=== PATIENT | male | born 1970 | race Caucasian/White ===

== ENCOUNTER 2021-06-06 15:12 | Emergency (ER) | payer OTHER ==
[~2021-06-06] VITALS: Ht 182.8 cm; Wt 98.6 kg
--- NOTE | 2021-06-06 15:25 | ED Dyspnea ---
General Stated Complaint: SOB History of Present Illness Date Seen by Provider: Jun 06, 2021 Time Seen by Provider: 15:18 Initial Comments 50-year-old male presents with mild chest discomfort, mild shortness of breath. Patient is positive for coronavirus. Patient was symptoms started on 05/25/2021 and was positive on 05/26. Patient presents today because he has just a little bit of mild chest discomfort/tightness and some mild feeling of shortness of breath. Patient's home oxygen has been run in the mid s. No reports of fever. He does still have a mild cough. Allergies and Home Medications Allergies Coded Allergies: Penicillins (Unverified Adverse Reaction, Unknown, 06/06/21) Patient Home Medication List Home Medication List Reviewed: Yes Budesonide (Budesonide) 1 Mg/2 Ml Ampul.edgard, (Reported) Entered as Reported by: TAMICA MOYA on 06/06/211529 Last Action: New Order Cefdinir (Cefdinir) 300 Mg Capsule, (Reported) Entered as Reported by: TAMICA MOYA on 06/06/211529 Last Action: New Order Dexamethasone (Dexamethasone) 6 Mg Tablet, (Reported) Entered as Reported by: TAMICA MOYA on 06/06/211529 Last Action: New Order Fenofibrate Nanocrystallized (Fenofibrate) 145 Mg Tablet, (Reported) Entered as Reported by: TAMICA MOYA on 06/06/211529 Last Action: New Order Ipratropium/Albuterol Sulfate (Iprat-Albut 0.5-3(2.5) mg/3 ml) 3 Ml Ampul.neb, (Reported) Entered as Reported by: TAMICA MOYA on 06/06/211529 Last Action: New Order Ivermectin (Ivermectin) 3 Mg Tablet, (Reported) Entered as Reported by: TAMICA MOYA on 06/06/211529 Last Action: New Order Review of Systems Review of Systems Constitutional: No chills, No fever Respiratory: cough, short of breath Cardiovascular: chest pain Gastrointestinal: no symptoms reported Genitourinary: no symptoms reported Musculoskeletal: no symptoms reported Skin: no symptoms reported Psychiatric/Neurological: No Symptoms Reported Endocrine: No Symptoms Reported Hematologic/Lymphatic: No Symptoms Reported Physical Exam Vital Signs Vital Signs - First Documented 06/06/21 15:23 Temp 36.3 Pulse 89 Resp 20 B/P (MAP) 156/92 (113) Pulse Ox 96 O2 Delivery Room Air Capillary Refill : Height, Weight, BMI Height: '" Weight: lbs. oz. kg; BMI Method: General Appearance: No Apparent Distress, WD/WN Respiratory: Lungs Clear, Normal Breath Sounds Cardiovascular: Regular Rate, Rhythm, No Edema Gastrointestinal: Non Tender, Soft Extremity: Normal Capillary Refill, Normal Inspection, Normal Range of Motion Neurologic/Psychiatric: Alert, Oriented x3, Normal Mood/Affect, blood bank laboratory technologist II-XII Norm as Tested Skin: Normal Color, Warm/Dry Progress/Results/Core Measures Results/Orders Lab Results Laboratory Tests Test 06/06/21 15:25 Range/Units White Blood Count 13.6 H 4.3-11.0 10^3/uL Red Blood Count 5.00 4.30-5.52 10^6/uL Hemoglobin 14.9 13.3-17.7 g/dL Hematocrit 45 40-54 % Mean Corpuscular Volume 90 80-99 fL Mean Corpuscular Hemoglobin 30 25-34 pg Mean Corpuscular Hemoglobin Concent 33 32-36 g/dL Red Cell Distribution Width 13.6 10.0-14.5 % Platelet Count 317 130-400 10^3/uL Mean Platelet Volume 9.5 9.0-12.2 fL Immature Granulocyte % (Auto) 1 % Neutrophils (%) (Auto) 95 H 42-75 % Lymphocytes (%) (Auto) 3 L 12-44 % Monocytes (%) (Auto) 2 0-12 % Eosinophils (%) (Auto) 0 0-10 % Basophils (%) (Auto) 0 0-10 % Neutrophils # (Auto) 12.9 H 1.8-7.8 X 10^3 Lymphocytes # (Auto) 0.4 L 1.0-4.0 X 10^3 Monocytes # (Auto) 0.2 0.0-1.0 X 10^3 Eosinophils # (Auto) 0.0 0.0-0.3 10^3/uL Basophils # (Auto) 0.0 0.0-0.1 10^3/uL Immature Granulocyte # (Auto) 0.1 0.0-0.1 10^3/uL Neutrophils % (Manual) 87 % Lymphocytes % (Manual) 2 % Monocytes % (Manual) 2 % Band Neutrophils 6 % Atypical Lymphocytes 3 % Blood Morphology Comment NORMAL D-Dimer 0.70 H 0.00-0.49 UG/ML Sodium Level 133 L 135-145 MMOL/L Potassium Level 4.4 3.6-5.0 MMOL/L Chloride Level 95 L 98-107 MMOL/L Carbon Dioxide Level 28 21-32 MMOL/L Anion Gap 10 5-14 MMOL/L Blood Urea Nitrogen 13 7-18 MG/DL Creatinine 0.95 0.60-1.30 MG/DL Estimat Glomerular Filtration Rate 84 BUN/Creatinine Ratio 14 Glucose Level 129 H 70-105 MG/DL Calcium Level 9.2 8.5-10.1 MG/DL Corrected Calcium 9.3 8.5-10.1 MG/DL Total Bilirubin 0.5 0.1-1.0 MG/DL Aspartate Amino Transf (AST/SGOT) 33 5-34 U/L Alanine Aminotransferase (ALT/SGPT) 32 0-55 U/L Alkaline Phosphatase 50 40-136 U/L Troponin I < 0.30 <0.30 NG/ML Total Protein 7.7 6.4-8.2 GM/DL Albumin 3.9 3.2-4.5 GM/DL My Orders Orders - PEGUERO,RAYO L DO Cbc With Automated Diff (06/06/21 15:25) Comprehensive Metabolic Panel (06/06/21 15:25) Fibrin Degradation Products (06/06/21 15:25) Troponin I Fs (06/06/21 15:25) Ed Iv/Invasive Line Start (06/06/21 15:25) Ekg Tracing (06/06/21 15:25) Monitor-Rhythm Ecg Trace Only (06/06/21 15:25) Chest 1 View Ap/Pa Only (06/06/21 15:25) Manual Differential (06/06/21 15:25) Ct Angio Chest W (06/06/21 16:21) Vital Signs/I&O 06/06/21 15:23 Temp 36.3 Pulse 89 Resp 20 B/P (MAP) 156/92 (113) Pulse Ox 96 O2 Delivery Room Air Progress Progress Note : Progress Note Patient with slight elevation of D-dimer. Discussed with him CTA but this time he declined. Patient does have some mild infiltrates likely a result of his Covid pneumonia. Patient was just recently started on azithromycin. Patient oxygen is in the mid upper 90s with a heart rate in the mid 70s. Patient stable and will be discharged home Initial ECG Impression Date: Jun 06, 2021 Initial ECG Impression Time: 15:24 Initial ECG Rhythm: Normal Sinus Initial ECG Intervals: Normal Initial ECG Impression: Normal Diagnostic Imaging Diagonstic Imaging: Xray Plain Films/CT/US/NM/MRI: chest Comments Date of Exam:06/06/21 CHEST 1 VIEW AP/PA ONLY CLINICAL INDICATION: Patient with chest pain. Patient diagnosed with COVID on 05/26/2021. EXAM: Portable chest x-ray upright view. COMPARISONS: None. FINDINGS: Lungs/pleura: There are mild patchy airspace opacities involving the periphery of the left midlung field and left lung base region, concerning for lung infiltrates. The remainder of the lungs are clear. There is no pneumothorax. There is no pleural effusion. Mediastinum: Unremarkable. Pulmonary vasculature: Unremarkable. Heart: Unremarkable. Bones/extrathoracic soft tissue: Unremarkable. IMPRESSION: There are mild patchy airspace opacities involving the periphery of the left midlung field and left lung base, concerning for lung infiltrates/pneumonia. Departure Impression Primary Impression: Pneumonia due to COVID-19 virus Disposition: 01 HOME, SELF-CARE Condition: Stable Departure-Patient Inst. Referrals: JOSIAH MOCK DO (PCP/Family) Primary Care Physician Patient Instructions: Recovery After COVID-19 Add. Discharge Instructions: Continue your current treatment from Dr. MOCK's office. Return to the ER with any worsening chest pain or decreasing O2 saturation RAYO PEGUERO DO Jun 06, 2021 15:25
[2021-06-06] MEDS ORDERED: FENO145T26 (15:30)
[2021-06-06] MEDS ORDERED: CEFD300C3 (15:30)
[2021-06-06] MEDS ORDERED: IPRA3AMP31 (15:30)
[2021-06-06] MEDS ORDERED: BUDE1AMP2 (15:30)
[2021-06-06] MEDS ORDERED: IVER3TAB2 (15:30)
[2021-06-06] MEDS ORDERED: DEXA6TAB (15:30)
--- NOTE | 2021-06-06 15:51 | Diagnostic Imaging Report ---
CLINICAL INDICATION: Patient with chest pain. Patient diagnosed with COVID on 05/26/2021. EXAM: Portable chest x-ray upright view. COMPARISONS: None. FINDINGS: Lungs/pleura: There are mild patchy airspace opacities involving the periphery of the left midlung field and left lung base region, concerning for lung infiltrates. The remainder of the lungs are clear. There is no pneumothorax. There is no pleural effusion. Mediastinum: Unremarkable. Pulmonary vasculature: Unremarkable. Heart: Unremarkable. Bones/extrathoracic soft tissue: Unremarkable. IMPRESSION: There are mild patchy airspace opacities involving the periphery of the left midlung field and left lung base, concerning for lung infiltrates/pneumonia. Dictated by: Dictated on workstation # [id number]
[2021-06-06 15:55] LABS: CHLORIDE 95 MMOL/L (98-107); POTASSIUM 4.4 MMOL/L (3.6-5.0); SODIUM 133 MMOL/L (135-145)
[2021-06-06 15:56] LABS: ALANINE AMINOTRANSFERASE 32 U/L (0-55); ALBUMIN 3.9 GM/DL (3.2-4.5); ALKALINE PHOSPHATASE 50 U/L (40-136); BILIRUBIN,TOTAL 0.5 MG/DL (0.1-1.0); BUN/CREATININE RATIO 14; CALCIUM 9.2 MG/DL (8.5-10.1); CARBON DIOXIDE 28 MMOL/L (21-32); CREATININE SERUM 0.95 MG/DL (0.60-1.30); GFR ESTIMATED 84; GLUCOSE 129 MG/DL (70-105); TOTAL PROTEIN 7.7 GM/DL (6.4-8.2)
[2021-06-06 16:04] LABS: BASOPHILS % (AUTO) 0 % (0-10); EOSINOPHILS % (AUTO) 0 % (0-10); HEMATOCRIT 45 % (40-54); HEMOGLOBIN 14.9 g/dL (13.3-17.7); LYMPHOCYTES % (AUTO) 3 % (12-44); MEAN CORPUSCULAR HEMOGLOBIN 30 pg (25-34); MEAN CORPUSCULAR HGB CONC 33 g/dL (32-36); MEAN CORPUSCULAR VOLUME 90 fL (80-99); MEAN PLATELET VOLUME 9.5 fL (9.0-12.2); MONOCYTES % (AUTO) 2 % (0-12); NEUTROPHILS # (AUTO) 12.9 X 10^3 (1.8-7.8); NEUTROPHILS % (AUTO) 95 % (42-75); PLATELET COUNT 317 10^3/uL (130-400); WHITE BLOOD COUNT 13.6 10^3/uL (4.3-11.0)
[2021-06-06 16:05] LABS: LYMPHOCYTES # (AUTO) 0.4 X 10^3 (1.0-4.0); MONOCYTES # (AUTO) 0.2 X 10^3 (0.0-1.0); NEUTROPHILS % (MANUAL) 87 %
[2021-06-06 16:06] LABS: ATYPICAL LYMPHOCYTES 3 %; BAND NEUTROPHILS 6 %; LYMPHOCYTES % (MANUAL) 2 %; MONOCYTES % (MANUAL) 2 %; RBC MORPH NORMAL
[2021-06-06 16:34] VITALS: BP 139/83
== END 2021-06-06 16:34 | disposition home or self-care (01) ==
LOC: EDUNIT# 15:12 → ER FS 15:14
DX: U07.1 COVID-19 (principal); J12.82 Pneumonia due to coronavirus disease 2019
CPT/HCPCS: 36415; 71045; 80053; 84484; 85007; 85027; 85379; 93005